=== PATIENT | male | born 1965 | race Caucasian/White ===

== ENCOUNTER 2017-04-12 11:22 | Emergency (ER) | payer SELFPAY ==
[2017-04-12 11:23] VITALS: BP 112/60; PULSE 67; RESP 14; TEMP 97.6; O2SAT 97
[2017-04-12] MEDS ORDERED: SODIUM CHLOR 0.9% 1000 ML INJ 1,000 ML IV SCH (12:07)
--- NOTE | 2017-04-12 12:13 | PD ---
HPI Chief Complaint: Abdominal Pain Time Seen by Provider: 12:07 Travel History International Travel<30 days: Yes Contact w/Intl Traveler<30days: Yes Name of Country Traveled to: [place] Traveled to known affect area: No History of Present Illness HPI Patient is a 52-year-old male male presenting to the emergency department for evaluation of right upper quadrant abdominal pain and constipation. Patient states that the pain is been ongoing for 3 days. He denies any nausea or vomiting, he felt feverish yesterday but did not take his temperature. Patient has a past medical history of cholelithiasis and ulcer. He denies any other medical history, he is not on any home medications. Patient recently arrived in [facility] from [place]. [facility] Past Medical History Gastrointestinal Disorders: Yes (cholelithiasis, gastric ulcer) Past Surgical History Surgical History: No Previous Surgery Social History Alcohol Use: No Tobacco Use: No Substance Use: No Allergies-Medications (Allergen,Severity, Reaction): Coded Allergies: No Known Allergies (Unverified , 04/12/17) Review of Systems Except as stated in HPI: all other systems reviewed are Neg General / Constitutional: Positive: Fever Cardiovascular: No: Chest Pain or Discomfort, Palpitations Respiratory: No: Shortness of Breath Gastrointestinal: Positive: Abdominal Pain, Constipation, No: Nausea, Vomiting Genitourinary: No: Dysuria Musculoskeletal: No: Myalgias Physical Exam Narrative GENERAL: Well-developed, well-nourished, alert male. Resting comfortably in no acute distress. SKIN: Warm and dry. No rash or obvious lesions. HEAD: Atraumatic. Normocephalic. EYES: Pupils equal and round. No scleral icterus. No injection or drainage. ENT: No nasal bleeding or discharge. Mucous membranes pink and moist. NECK: Trachea midline. No JVD. CARDIOVASCULAR: Regular rate and rhythm. RESPIRATORY: No accessory muscle use. Clear to auscultation. Breath sounds equal bilaterally. GASTROINTESTINAL: Abdomen soft, mildly tender in right upper quadrant, no rebound, no guarding, nondistended. Hepatic and splenic margins not palpable. Positive bowel sounds. MUSCULOSKELETAL: Extremities without clubbing, cyanosis, or edema. No obvious deformities. NEUROLOGICAL: Awake and alert. No obvious cranial nerve deficits. Motor grossly within normal limits. Five out of 5 muscle strength in the arms and legs. Normal speech. PSYCHIATRIC: Appropriate mood and affect; insight and judgment normal. Data Data Last Documented VS Vital Signs Date Time Temp Pulse Resp B/P (MAP) Pulse Ox O2 Delivery O2 Flow Rate FiO2 04/12/17 12:28 15 04/12/17 11:23 97.6 67 112/60 (77) 97 Orders Orders Complete Blood Count With Diff (04/12/17 12:07) Comprehensive Metabolic Panel (04/12/17 12:07) Lipase (04/12/17 12:07) Ct Abd/Pel W Iv Contrast(Rout) (04/12/17 12:07) Iv Access Insert/Monitor (04/12/17 12:07) Ecg Monitoring (04/12/17 12:07) Oximetry (04/12/17 12:07) NPO (04/12/17 12:07) Morphine Inj (Morphine Inj) (04/12/17 12:15) Ondansetron Inj (Zofran Inj) (04/12/17 12:15) Sodium Chlor 0.9% 1000 Ml Inj (Ns 1000 M (04/12/17 12:07) Sodium Chloride 0.9% Flush (Ns Flush) (04/12/17 12:15) Iohexol 350 Inj (Omnipaque 350 Inj) (04/12/17 12:48) Us Abdomen Gallbladder (04/12/17 ) Labs Laboratory Tests Test 04/12/17 12:15 White Blood Count 5.6 TH/MM3 Red Blood Count 4.52 MIL/MM3 Hemoglobin 14.0 GM/DL Hematocrit 40.0 % Mean Corpuscular Volume 88.5 FL Mean Corpuscular Hemoglobin 31.0 PG Mean Corpuscular Hemoglobin Concent 35.0 % Red Cell Distribution Width 13.3 % Platelet Count 251 TH/MM3 Mean Platelet Volume 7.8 FL Neutrophils (%) (Auto) 33.1 % Lymphocytes (%) (Auto) 53.8 % Monocytes (%) (Auto) 8.5 % Eosinophils (%) (Auto) 3.9 % Basophils (%) (Auto) 0.7 % Neutrophils # (Auto) 1.8 TH/MM3 Lymphocytes # (Auto) 3.0 TH/MM3 Monocytes # (Auto) 0.5 TH/MM3 Eosinophils # (Auto) 0.2 TH/MM3 Basophils # (Auto) 0.0 TH/MM3 CBC Comment DIFF FINAL Differential Comment Blood Urea Nitrogen 13 MG/DL Creatinine 1.00 MG/DL Random Glucose 86 MG/DL Total Protein 7.3 GM/DL Albumin 3.7 GM/DL Calcium Level 8.6 MG/DL Alkaline Phosphatase 91 U/L Aspartate Amino Transf (AST/SGOT) 30 U/L Alanine Aminotransferase (ALT/SGPT) 80 U/L Total Bilirubin 1.4 MG/DL Sodium Level 139 MEQ/L Potassium Level 3.8 MEQ/L Chloride Level 106 MEQ/L Carbon Dioxide Level 25.9 MEQ/L Anion Gap 7 MEQ/L Estimat Glomerular Filtration Rate 78 ML/MIN Lipase 126 U/L [facility] Medical Decision Making Medical Screen Exam Complete: Yes Emergency Medical Condition: Yes Interpretation(s) Last Impressions Abdomen/Pelvis CT 04/12/17 1207 Signed Impressions: Service Date/Time: Wednesday, April 12, 2017 12:40 - CONCLUSION: 1. Contracted gallbladder containing multiple hyperdense lesions, presumably cholelithiasis. Ultrasound examination may be performed for further evaluation as clinically warranted. 2. Otherwise, unremarkable CT examination of the abdomen and pelvis. 3. Normal appendix. 4. No significant colonic stool to suggest constipation. 5. Small renal cysts, as above. Ronnie Walden MD Laboratory Tests Test 04/12/17 12:15 White Blood Count 5.6 TH/MM3 Red Blood Count 4.52 MIL/MM3 Hemoglobin 14.0 GM/DL Hematocrit 40.0 % Mean Corpuscular Volume 88.5 FL Mean Corpuscular Hemoglobin 31.0 PG Mean Corpuscular Hemoglobin Concent 35.0 % Red Cell Distribution Width 13.3 % Platelet Count 251 TH/MM3 Mean Platelet Volume 7.8 FL Neutrophils (%) (Auto) 33.1 % Lymphocytes (%) (Auto) 53.8 % Monocytes (%) (Auto) 8.5 % Eosinophils (%) (Auto) 3.9 % Basophils (%) (Auto) 0.7 % Neutrophils # (Auto) 1.8 TH/MM3 Lymphocytes # (Auto) 3.0 TH/MM3 Monocytes # (Auto) 0.5 TH/MM3 Eosinophils # (Auto) 0.2 TH/MM3 Basophils # (Auto) 0.0 TH/MM3 CBC Comment DIFF FINAL Differential Comment Blood Urea Nitrogen 13 MG/DL Creatinine 1.00 MG/DL Random Glucose 86 MG/DL Total Protein 7.3 GM/DL Albumin 3.7 GM/DL Calcium Level 8.6 MG/DL Alkaline Phosphatase 91 U/L Aspartate Amino Transf (AST/SGOT) 30 U/L Alanine Aminotransferase (ALT/SGPT) 80 U/L Total Bilirubin 1.4 MG/DL Sodium Level 139 MEQ/L Potassium Level 3.8 MEQ/L Chloride Level 106 MEQ/L Carbon Dioxide Level 25.9 MEQ/L Anion Gap 7 MEQ/L Estimat Glomerular Filtration Rate 78 ML/MIN Lipase 126 U/L Vital Signs Date Time Temp Pulse Resp B/P (MAP) Pulse Ox O2 Delivery O2 Flow Rate FiO2 04/12/17 11:23 97.6 67 14 112/60 97 Differential Diagnosis Cholecystitis versus obstruction versus gastritis versus other Narrative Course Patient is a 52-year-old male presenting to the emergency department for evaluation of right upper quadrant abdominal pain. Patient's vital signs are stable, labs and imaging ordered and pending. Abdominal examination is unimpressive. CBC is unremarkable Lipase 126, chemistry with a bilirubin of 1.4, ALT 80 otherwise no acute findings identified. CT scan of the abdomen and pelvis which was read by the radiologist shows contracted gallbladder containing multiple hyperdense lesions presumably cholelithiasis. Ultrasound examination may be performed for further evaluation as clinically warranted. Otherwise unremarkable CT examination of the abdomen and pelvis. Normal appendix. No significant colonic stool to suggest constipation. Small renal cysts as stated above in the report. This was discussed with my attending physician. Patient will be discharged home with follow-up with PCP in general surgeon. Discussed findings with family, they will be going back to [facility] and 2 days. Again they were encouraged to follow-up with the primary doctor general surgeon then, they were also given strict return precautions. They verbalized understanding. Patient is stable for discharge. Diagnosis Primary Impression: Cholelithiasis Qualified Codes: K80.80 - Other cholelithiasis without obstruction Referrals: General Surgeon Primary Care Physician Patient Instructions: Biliary Colic (ED), Gallstones (ED), General Instructions Additional Instructions: Follow-up with your primary doctor and Gen. surgery Return to emergency department for any new or worsening symptoms Med/Other Pt SpecificInfo: Prescription(s) given Scripts Oxycodone-Acetaminophen (Percocet) 5-325 mg Tab 1 TAB PO Q4H Y for PAIN, #15 TAB 0 Refills Prov: Ileana Greenberg 04/12/17 Disposition: 01 DISCHARGE HOME Condition: Stable Ileana Greenberg Apr 12, 2017 12:12
[2017-04-12] MEDS ORDERED: MORPHINE SULFATE 4 MG/ML INJ IV PUSH ONE (12:15)
[2017-04-12] MEDS ORDERED: ONDANSETRON HCL 4 MG/2 ML VIAL IVP ONE (12:15)
[2017-04-12] MEDS ORDERED: SODIUM CHLORIDE 0.9% FLUSH 10 ML FLUSH IV FLUSH PRN (12:15)
[2017-04-12 12:28] VITALS: RESP 15
[2017-04-12 12:34] LABS: AUTOMATED NEUTROPHIL # 1.8 TH/MM3 (1.8-7.7); BASOPHIL % 0.7 % (0.0-2.0); EOSINOPHIL # 0.2 TH/MM3 (0-0.4); EOSINOPHIL % 3.9 % (0.0-4.0); LYMPH % 53.8 % (9.0-44.0); MEAN CELL VOLUME 88.5 FL (80.0-100.0); MEAN PLATELET VOLUME 7.8 FL (7.0-11.0); MONO % 8.5 % (0.0-8.0); MONOCYTE # 0.5 TH/MM3 (0-0.9); NEUT % 33.1 % (16.0-70.0); PLATELET COUNT 251 TH/MM3 (150-450); RED BLOOD COUNT 4.52 MIL/MM3 (4.50-5.90); RED CELL DISTRIBUTION WIDTH 13.3 % (11.6-17.2); WHITE BLOOD COUNT 5.6 TH/MM3 (4.0-11.0)
[2017-04-12] MEDS ORDERED: IOHEXOL 350 MG/ML 10 ML VIAL (for RAD DIAG) IVCONTRAST ONE (12:48)
[2017-04-12 12:49] LABS: ALBUMIN 3.7 GM/DL (3.4-5.0); AST (GOT) 30 U/L (15-37); BICARBONATE 25.9 MEQ/L (21.0-32.0); BLOOD UREA NITROGEN 13 MG/DL (7-18); CALCIUM 8.6 MG/DL (8.5-10.1); CHLORIDE 106 MEQ/L (98-107); GLOMERULAR FILTRATION RATE 78 ML/MIN (>89); GLUCOSE,RANDOM 86 MG/DL (74-106); LIPASE 126 U/L (73-393); SODIUM (NA) 139 MEQ/L (136-145)
[2017-04-12 12:50] LABS: ALT (GPT) 80 U/L (12-78)
[2017-04-12 12:52] LABS: ALKALINE PHOSPHATASE 91 U/L (45-117); TOTAL BILIRUBIN ADULT 1.4 MG/DL (0.2-1.0); TOTAL PROTEIN 7.3 GM/DL (6.4-8.2)
--- NOTE | 2017-04-12 13:36 | RADRPT ---
EXAM DATE/TIME: 04/12/2017 12:40 [facility] COMPARISON: No previous studies available for comparison. INDICATIONS : Right upper abdomen pain and constipation for three days. IV CONTRAST: 71 cc Omnipaque 350 (iohexol) IV ORAL CONTRAST: No oral contrast ingested. RADIATION DOSE: 6.64 CTDIvol (mGy) ; Patient motion MEDICAL HISTORY : Cholelithiasis. SURGICAL HISTORY : None. ENCOUNTER: Initial ACUITY: 3 days PAIN SCALE: 6/10 LOCATION: Right upper quadrant TECHNIQUE: Volumetric scanning of the abdomen and pelvis was performed. Using automated exposure control and ad justment of the mA and/or kV according to patient size, radiation dose was kept as low as reasonably achievable to obtain optimal diagnostic quality images. DICOM format image data is available electro nically for review and comparison. FINDINGS: LOWER LUNGS: The visualized lower lungs are clear. LIVER: Homogeneous density without lesion. There is no dilation of the biliary tree. Multiple hyperdense ma terial in the gallbladder which is partly contracted. SPLEEN: Normal size without lesion. PANCREAS: Within normal limits. KIDNEYS: 1.5 x 1.6 cm exophytic cyst arising from the superior pole of the right kidney. Subcentimeter hypoden se cystic lesions in the mid left kidney which are too small to fully characterize. ADRENAL GLANDS: Within normal limits. VASCULAR: There is no aortic aneurysm. BOWEL/MESENTERY: The stomach, small bowel, and colon demonstrate no acute abnormality. Appendix is visualized and antonette ears normal. There is no free intraperitoneal air or fluid. ABDOMINAL WALL: Within normal limits. RETROPERITONEUM: There is no lymphadenopathy. BLADDER: No wall thickening or mass. REPRODUCTIVE: Within normal limits. INGUINAL: There is no lymphadenopathy or hernia. MUSCULOSKELETAL: Within normal limits for patient age. CONCLUSION: 1. Contracted gallbladder containing multiple hyperdense lesions, presumably cholelithiasis. Ultrasou nd examination may be performed for further evaluation as clinically warranted. 2. Otherwise, unremarkable CT examination of the abdomen and pelvis. 3. Normal appendix. 4. No significant colonic stool to suggest constipation. 5. Small renal cysts, as above. Ronnie Walden MD on April 12, 2017 at 13:20 Board Certified Radiologist. This report was verified electronically.
--- NOTE | 2017-04-12 13:43 | PD ---
Physical Exam Date Seen by Provider: Apr 12, 2017 Narrative Patient presents with right upper quadrant abdominal pain. He reportedly has known cholelithiasis. Data Data Last Documented VS Vital Signs Date Time Temp Pulse Resp B/P (MAP) Pulse Ox O2 Delivery O2 Flow Rate FiO2 04/12/17 12:28 15 04/12/17 11:23 97.6 67 112/60 (77) 97 Orders Orders Complete Blood Count With Diff (04/12/17 12:07) Comprehensive Metabolic Panel (04/12/17 12:07) Lipase (04/12/17 12:07) Ct Abd/Pel W Iv Contrast(Rout) (04/12/17 12:07) Iv Access Insert/Monitor (04/12/17 12:07) Ecg Monitoring (04/12/17 12:07) Oximetry (04/12/17 12:07) NPO (04/12/17 12:07) Morphine Inj (Morphine Inj) (04/12/17 12:15) Ondansetron Inj (Zofran Inj) (04/12/17 12:15) Sodium Chlor 0.9% 1000 Ml Inj (Ns 1000 M (04/12/17 12:07) Sodium Chloride 0.9% Flush (Ns Flush) (04/12/17 12:15) Iohexol 350 Inj (Omnipaque 350 Inj) (04/12/17 12:48) Labs Laboratory Tests Test 04/12/17 12:15 White Blood Count 5.6 TH/MM3 Red Blood Count 4.52 MIL/MM3 Hemoglobin 14.0 GM/DL Hematocrit 40.0 % Mean Corpuscular Volume 88.5 FL Mean Corpuscular Hemoglobin 31.0 PG Mean Corpuscular Hemoglobin Concent 35.0 % Red Cell Distribution Width 13.3 % Platelet Count 251 TH/MM3 Mean Platelet Volume 7.8 FL Neutrophils (%) (Auto) 33.1 % Lymphocytes (%) (Auto) 53.8 % Monocytes (%) (Auto) 8.5 % Eosinophils (%) (Auto) 3.9 % Basophils (%) (Auto) 0.7 % Neutrophils # (Auto) 1.8 TH/MM3 Lymphocytes # (Auto) 3.0 TH/MM3 Monocytes # (Auto) 0.5 TH/MM3 Eosinophils # (Auto) 0.2 TH/MM3 Basophils # (Auto) 0.0 TH/MM3 CBC Comment DIFF FINAL Differential Comment Blood Urea Nitrogen 13 MG/DL Creatinine 1.00 MG/DL Random Glucose 86 MG/DL Total Protein 7.3 GM/DL Albumin 3.7 GM/DL Calcium Level 8.6 MG/DL Alkaline Phosphatase 91 U/L Aspartate Amino Transf (AST/SGOT) 30 U/L Alanine Aminotransferase (ALT/SGPT) 80 U/L Total Bilirubin 1.4 MG/DL Sodium Level 139 MEQ/L Potassium Level 3.8 MEQ/L Chloride Level 106 MEQ/L Carbon Dioxide Level 25.9 MEQ/L Anion Gap 7 MEQ/L Estimat Glomerular Filtration Rate 78 ML/MIN Lipase 126 U/L MDM Supervised Visit with ALEXANDRA: Yes Narrative Course I, Dr. Bourgeois, have reviewed the advance practice practitioner's documentation and am in agreement, met with the patient face to face, made the diagnosis, and the medical decision making was done by me. *My assessment and Findings: Benign abdominal exam. CBC & BMP Diagram 04/12/17 12:15 Total Protein 7.3, Albumin 3.7, Calcium Level 8.6, Alkaline Phosphatase 91, Aspartate Amino Transf (AST/SGOT) 30, Alanine Aminotransferase (ALT/SGPT) 80 H, Total Bilirubin 1.[address]>>cholelithiasis Glory Bourgeois MD Apr 12, 2017 13:43
[2017-04-12] MEDS ORDERED: PERC5TAB12 PO (14:09)
== END 2017-04-12 14:55 | disposition home or self-care (01) ==
LOC: NEPE 11:22
DX: K80.80 Other cholelithiasis without obstruction (principal); N28.1 Cyst of kidney, acquired
CPT/HCPCS: 74177; 80053; 83690; 85025; 96374; 96375; 99285; J2270; J2405; J7030; Q9967